=== PATIENT | male | born 1970 | race Caucasian/White ===

== ENCOUNTER 2019-11-03 06:31 | Emergency (ER) | payer OTHER ==
--- NOTE | 2019-11-03 07:21 | ED.PDOC ---
History of Present Illness - General Chief Complaint: Laceration Stated Complaint: laceration to left hand Time Seen by Provider: 11/03/19 07:16 Source: patient Exam Limitations: no limitations - History of Present Illness Initial Comments: pt here with 3/4 in lac to webbing of left hand bw digit 1&2. has healed closed already. no obvious infection. no other injury. nvi. Timing/Duration: 24 hours Severity: mild Improving Factors: nothing Worsening Factors: nothing Associated Symptoms: denies symptoms Allergies/Adverse Reactions: Allergies NO KNOWN ALLERGY Allergy (Verified 02/04/16 08:03) Home Medications: Ambulatory Orders Sulfa/Trimeth 800/160 (Ds) Tab [Bactrim DS Tab] 1 ea PO BID #7 tab 11/03/19 Review of Systems - Review of Systems Review of Systems: VERENICE DOMIGNUEZ 1 okay is ordered computer request Constitutional: States: no symptoms reported EENTM: States: no symptoms reported Respiratory: States: no symptoms reported Cardiology: States: no symptoms reported Gastrointestinal/Abdominal: States: no symptoms reported Genitourinary: States: no symptoms reported Musculoskeletal: States: no symptoms reported Skin: States: see HPI Neurological: States: no symptoms reported Endocrine: States: no symptoms reported All other Systems: No Change from Baseline Past Medical History (General) - Patient Medical History Hx Stroke: No Hx Congestive Heart Failure: No Hx Diabetes: No Hx Gastroesophageal Reflux: Yes Hx MRSA: No Surgical History: no surgical history - Vaccination History Hx Tetanus, Diphtheria Vaccination: Yes - 4yrs ago Hx Influenza Vaccination: No - Social History Hx Tobacco Use: Yes Hx Alcohol Use: Yes Family Medical History - Family History Father Living Status: Hx Family Hypertension: Yes Hx Family;Other: emphysema; ulcers Physical Exam - Physical Exam General Appearance: Alert, Comfortable, No apparent distress Eye Exam: bilateral normal Ears, Nose, Throat: hearing grossly normal Respiratory: no respiratory distress, no accessory muscle use Cardiovascular/Chest: normal peripheral pulses, no edema Peripheral Pulses: radial,right: 2+, radial,left: 2+ Rectal Exam: deferred Extremity: normal range of motion, normal capillary refill Neurologic: sec reporting consultant II-XII nml as tested, alert, normal mood/affect, oriented x 3 Skin Exam: normal color - laceration as per hpi Comments: Vital Signs - 24 hr 11/03/19 06:59 Temperature 97.2 F L Pulse Rate [ 88 left] Respiratory 18 Rate Blood Pressure 140/100 [left] O2 Sat by Pulse 98 Oximetry Progress - Progress Progress: 11/03/19 07:33 pt here with healed over lac to the left hand. will have 3d of abx ordered. follow up with pcp. Departure - Departure Clinical Impression: Accidental laceration Disposition: Discharge to Home or Self Care Condition: Fair Departure Forms: ED Discharge - Pt. Copy, Patient Portal Self Enrollment Instructions: DI for Laceration Repair Diet: regular diet Activity: increase activity as tolerated Prescriptions: Sulfa/Trimeth 800/160 (Ds) Tab [Bactrim DS Tab] 1 ea PO BID #7 tab Home Medications: Ambulatory Orders Sulfa/Trimeth 800/160 (Ds) Tab [Bactrim DS Tab] 1 ea PO BID #7 tab 11/03/19 Additional Instructions: monitor cut for infection. will have 3 days of antibiotics.
[2019-11-03 07:45] VITALS: BP 131/113; TEMP 96.7; O2SAT 96
== END 2019-11-03 07:43 | disposition home or self-care (01) ==
LOC: ER 06:31
DX: S61.412A Laceration without foreign body of left hand, initial encounter (principal); K21.9 Gastro-esophageal reflux disease without esophagitis; Z87.891 Personal history of nicotine dependence; W45.8XXA Other foreign body or object entering through skin, initial encounter; Y99.0 Civilian activity done for income or pay; Y92.69 Other specified industrial and construction area as the place of occurrence of the external cause